=== PATIENT | female | born 1925 | race Caucasian/White ===

== ENCOUNTER 2016-07-19 13:20 | Inpatient (IN) | payer MEDICARE, OTHER ==
[2016-07-19 14:43] LABS: Urine Bacteria Absent (Absent); Urine Bilirubin Negative (Negative); Urine Glucose Negative (Negative); Urine Nitrite Negative (Negative)
--- NOTE | 2016-07-19 15:02 | RAD ---
HISTORY: Weakness COMPARISONS: January 23, 2015 VIEWS:1: Single frontal portable view of the chest at 2:35 PM FINDINGS: LINES AND TUBES: None. CARDIOMEDIASTINAL SILHOUETTE: The cardiomediastinal silhouette is normal for portable technique. PLEURA: The costophrenic angles are sharp. No pleural abnormalities are noted. LUNG PARENCHYMA: There is hyperinflation. ABDOMEN: The upper abdomen is clear. There is no subphrenic gas. BONES AND SOFT TISSUES: No bone or soft tissue abnormalities are noted. IMPRESSION: COPD. NO ACTIVE CARDIOPULMONARY DISEASE.
[2016-07-19 16:00] LABS: Hematocrit 40 % (35-47); Hemoglobin 12.8 g/dl (12.0-16.0); Mean Corpuscular HGB Conc 32 g/dl (31-36); Mean Corpuscular Hemoglobin 28 pg (27-31); Mean Corpuscular Volume 87 fL (80-97); Mean Platelet Volume 8 um3 (7.4-10.4); Red Blood Count 4.55 10^6/ul (4.0-5.4); Red Cell Distribution Width 14 % (10.5-15); White Blood Count 8.3 10^3/ul (3.5-10.8)
[2016-07-19 16:24] LABS: Albumin 3.9 g/dL (3.2-5.2); BUN/Creatinine Ratio 24.4 (8-20); C Reactive Protein 1.61 mg/L (< 5.00); Calcium 9.6 mg/dL (8.6-10.3); EGFR African American 84.6 (>60); EGFR Non-African American 65.8 (>60); Globulin 2.9 g/dL (2-4); Potassium 3.9 mmol/L (3.5-5.0); Total Bilirubin 0.4 mg/dL (0.2-1.0); Total Protein 6.8 g/dL (6.4-8.9)
[2016-07-19] MEDS: NS 0.9% 1000 ML* 1,000 ML IV SCH ×2 (16:38→22:27)
--- NOTE | 2016-07-19 18:57 | ED ---
Henna Hatfield Auryana, scribed for Cory Reyes MD on 07/19/16 at 1548 . Dizziness - HPI Summary HPI Summary: 89 year old females presents with near syncope starting today while with a friend. Nurses at [facility] states that they took her BP - reported that it was high. She states that she also feels SOB and weak but denies chest pain, abdominal pain, or any other pain. She states she's never had any LOC/full syncope. Her symptoms are improved with rest. She states that she was unable to have lunch since this episode happened just before that. She has had similar episodes of near syncope 5 years ago associated with blood pressure. She currently lives at [facility]. Dr. Keiko Parry referred her to the ED today. - History Of Current Complaint Chief Complaint: EDDizziness Stated Complaint: WEAKNESS Time Seen by Provider: 07/19/16 15:05 Hx Obtained From: Patient Onset/Duration: Resolved Timing: Constant Severity Initially: Mild Severity Currently: None Character: Dizzy Alleviating Factor(s): Rest Associated Signs And Symptoms: Positive: SOB, Other: - weakness. Negative: Chest Pain Related History: Similar Episode/Dx as - YES SEE HPI - Allergies/Home Medications Allergies/Adverse Reactions: Allergies Allergy/AdvReac Type Severity Reaction Status Date / Time Sulfa Antibiotics Allergy Unknown Verified 01/24/16 11:07 Reaction Details PMH/Surg Hx/FS Hx/Imm Hx Endocrine/Hematology History: Denies: Hx Diabetes, Hx Thyroid Disease Cardiovascular History: Denies: Hx Hypertension, Hx Pacemaker/ICD Respiratory History: Denies: Hx Asthma, Hx Chronic Obstructive Pulmonary Disease (COPD) GI History: Denies: Hx Ulcer History: Denies: Hx Renal Disease Musculoskeletal History: Reports: Hx Osteoporosis Sensory History: Reports: Hx Hearing Aid - DON'T WEAR THEM Psychiatric History: Denies: Hx Anxiety, Hx Depression, Hx Panic Disorder - Surgical History Surgery Procedure, Year, and Place: D & Cs. TONSILECTOMY. CATARACT Infectious Disease History: No Infectious Disease History: Denies: Hx Clostridium Difficile, Hx Hepatitis, Hx Human Immunodeficiency Virus (HIV), Hx of Known/Suspected MRSA, Hx Shingles, Hx Tuberculosis, Hx Known/ Suspected VRE, Hx Known/Suspected VRSA, History Other Infectious Disease, Traveled Outside the [place] in Last 30 Days - Family History Known Family History: Positive: Cardiac Disease - Social History Occupation: Retired Lives: Assisted Living - [facility] Alcohol Use: None Substance Use Type: Reports: None Hx Tobacco Use: No Smoking Status (MU): Never Smoked Tobacco Review of Systems Positive: Other - DIZZINESS. Negative: Fever Eyes: Negative ENT: Negative Cardiovascular: Negative Negative: Chest Pain Positive: Shortness Of Breath Gastrointestinal: Negative Negative: Abdominal Pain Genitourinary: Negative Positive: Other - WEAKNESS Skin: Negative Neurological: Other - NEAR SYNCOPE Negative: Syncope Psychological: Normal All Other Systems Reviewed And Are Negative: Yes Physical Exam Triage Information Reviewed: Yes Vital Signs On Initial Exam: Initial Vitals Temp Pulse Resp BP Pulse Ox 97.6 F 72 20 151/72 98 07/19/16 13:30 07/19/16 13:30 07/19/16 13:30 07/19/16 13:30 07/19/16 13:30 Vital Signs Reviewed: Yes Appearance: Positive: Well-Appearing, No Pain Distress Skin: Positive: Warm, Skin Color Reflects Adequate Perfusion, Dry Head/Face: Positive: Normal Head/Face Inspection Eyes: Positive: EOMI, LYNNE ENT: Positive: Normal ENT inspection Neck: Positive: Supple, Nontender Respiratory/Lung Sounds: Positive: Clear to Auscultation, Breath Sounds Present Cardiovascular: Positive: RRR Abdomen Description: Positive: Nontender, Soft Bowel Sounds: Positive: Present Musculoskeletal: Positive: Normal, Strength/ROM Intact Neurological: Positive: Normal, Sensory/Motor Intact, Alert, Oriented to Person Place, Time Psychiatric: Positive: Affect/Mood Appropriate Diagnostics - Vital Signs Vital Signs Temp Pulse Resp BP Pulse Ox 07/19/16 14:13 66 139/67 98 07/19/16 14:12 63 98 07/19/16 14:02 99.1 F 62 12 139/67 100 07/19/16 13:30 97.6 F 72 20 151/72 98 - Laboratory Lab Results: Lab Results 07/19/16 Range/Units 14:15 Urine Color Straw Urine Appearance Clear Urine pH 7.0 (5-9) Ur Specific Perry 1.003 L (1.010-1.030) Urine Protein Negative (Negative) Urine Ketones Negative (Negative) Urine Blood 1+ H (Negative) Urine Nitrate Negative (Negative) Urine Bilirubin Negative (Negative) Urine Urobilinogen Negative (Negative) Ur Leukocyte Esterase Trace H (Negative) Urine WBC (Auto) Trace(0-5/hpf) (Absent) Urine RBC (Auto) Trace(0-2/hpf) (Absent) Ur Squamous Epith Cells Present H (Absent) Urine Bacteria Absent (Absent) Urine Glucose Negative (Negative) Result Diagrams: 07/19/16 15:45 07/19/16 15:45 Lab Statement: Any lab studies that have been ordered have been reviewed, and results considered in the medical decision making process. - Radiology CXR Xray Interpretation: Positive (See Comments) Radiology Interpretation Completed By: Radiologist - COPD; NO ACTIVE CARDIOPULMONARY DISEASE - EKG 17:13 ST Segment: Normal Ectopy: None EKG Interpretation: NSR @63 BPM, NML ST SEGMENT, NO ECTOPY Re-Evaluation - Re-Evaluation First Eval Re-Evaluation Time: 18:40 - discussed imaging, labs, and Dizzy Course/Dx - Course Course Of Treatment: NO CRITICAL CARE TIME Assessment/Plan: DISCUSSED RESULTS WITH PATIENT/DR PARRY. ADMIT DR PARRY STABLE. - Diagnoses Provider Diagnoses: Near syncope - Provider Notifications Discussed Care Of Patient with: Dr. Parry Time Discussed With Above Provider: 18:39 - recommends admission Discharge - Discharge Plan Condition: Stable Disposition: ADMITTED TO [facility] Referrals: Keiko Parry MD [Primary Care Provider] - The documentation as recorded by the Henna dyson Auryana accurately reflects the service I personally performed and the decisions made by me, Cory Reyes MD.
--- NOTE | 2016-07-19 23:53 | HP ---
HISTORY AND PHYSICAL: DATE OF ADMISSION: 07/19/16 HISTORY OF PRESENT ILLNESS: Birgit Naranjo is an 89-year-old woman admitted with near syncope. The patient was playing the piano today with a friend. All of a sudden, she felt weak, hot in the head like she might black out. This had had this occurred close to noon. She had had breakfast. She went to the couch and lay down. When she lay down, she knew she would not black out. Her vision did not get dark. She did not have any vertigo but rather felt like her head would explode. She called for the nurse at [facility] to come and check her. He came in about 15 minutes she thinks. At that point, her blood pressure was quite high. Her systolic blood pressure was over 200 (?220). The ambulance was called. EMT checked her blood pressure, was 170/82, recheck 188/57, 10 minutes later 159 /88. She was transported to the emergency room. She is being admitted at this time. Of note, she had a similar episode on 07/15/16, which occurred after eating lunch. She had another episode similar to this a couple of weeks ago. She has been feeling generally weak, slower, not really doing her usual activities. For example, she says that yesterday she had rouge sifter come to her cottage at [facility] and she left the sink full of dishes, which she would not usually do. She also did not go to her usual yoga class. Of note, she had been in [place] at her grandson's wedding about a month ago. At that time, she injured her left leg. Then the weekend before last while her daughter was visiting, she tripped and hurt her leg again. Her left leg hurts in the front. She does not have any calf pain. PAST MEDICAL HISTORY: Otherwise significant for the following medical problems. 1. Previous history of dizziness. She said these episodes were different in the past and that they did not usually leave her feeling so weak. Once they were over, they were over. She had attributed some of these episodes to allergies. 2. Impaired fasting glucose with a hemoglobin A1c couple of months ago of 6.2%. 3. Osteoporosis. 4. 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 5. History of left TMJ. 6. History of meningioma. 7. History of mild depression. 8. History of basal cell carcinoma of the skin. 9. History of left scapular fracture in 2007. 10. History of scarlet fever. 11. Allergy to BEE STINGS. 12. Intolerance to gluten, not actual allergy. She does not have celiac disease. 13. History of dry eyes. 14. History of neck pain. PAST SURGICAL HISTORY: Includes excision of skin cancers. CURRENT MEDICATIONS: 1. Baby aspirin 1 daily. 2. Probiotic. 3. EpiPen p.r.n. 4. Restasis eye drops 1 drop both eyes twice a day only in the winter. 5. Regular aspirin 325 mg 1 to 2 tablets every 4 to 6 hours as needed for pain. ALLERGIES: SULFA and BEE STINGS. HABITS: Tobacco, none. ETOH, none. FAMILY HISTORY: Noncontributory. SOCIAL AND PERSONAL HISTORY: The patient is . She lives at [facility] in her own independent unit. She has 3 adult children, who lives out of the area. Another child had of cancer in recent years. She is retired. REVIEW OF SYSTEMS: Generally, she had been feeling very weak. Her appetite is always good. Her weight went up at her grandson's wedding when she gained 5 pounds over a week's time. She denied fevers or chills. She generally sleeps well except the time she gets up in the middle of the night when she goes to the bathroom and cannot get back to sleep and then she will put around the house. Skin: Negative. HEENT: She has visual problems, double vision for which she has prism, but has difficulty reading at times so listens to audio books. Nodes: Negative. Heme: Negative. Breasts: Negative. Endocrine: Always thirsty. Carries water with her. Respiratory: She feel short of breath with the episodes of near syncope. She also feels this way when she is exposed to outgassing gassing from things that she is allergic to. Cardiovascular: She denies chest pain. GI: She has chronic loose stool and rectal discharge at times. : She has urge incontinence. Musculoskeletal: See above. Her left leg has been hurting more since she fell backward last week. She has been walking differently. Neurologic: See above. PHYSICAL EXAMINATION GENERAL: She is an elderly white female, cheerful, lying on the stretcher, in no acute distress. VITAL SIGNS: Most recent vital signs, blood pressure 170/52, pulse 69, respirations 12, temperature afebrile, high in the ER was 99.1, now 98.1. SKIN: Warm and dry. HEENT: Atraumatic, normocephalic. Full EOMs. PERRLA. TMs unremarkable. Mouth and pharynx shows moist mucous membranes. NECK: Supple. CHEST: Clear. HEART: Normal S1, S2. There are no murmurs, gallops, or rubs. Pulses are full throughout. ABDOMEN: Soft, nontender. There are no masses or organomegaly. EXTREMITIES: Show trace edema. She has tenderness along the left anterior tibia. There is a tiny healing abrasion. There is no ecchymosis. She has no calf tenderness. She has crepitus on both knees, but with full range of motion. NEUROLOGIC: Alert, oriented. Cranial nerves intact. She moves all extremities. There are no gross focal or lateralizing signs. DTRs are 2 to 3+ and symmetric, upper and lower extremities. DIAGNOSTIC STUDIES/LAB DATA: Troponin x2 are negative. White count 8.3, H and H 12.8/40, MCV 87, PLT 256,000. INR normal at 0.87. Chemistries: Sodium 139, potassium 3.9, chloride 105, CO2 28, BUN and creatinine 20/0.82, glucose 101, lactic acid 0.7. Rest of the comprehensive metabolic panel was normal. CRP was normal at 1.61. Urinalysis, straw clear, specific gravity 1.03. Dipsticks positive for 1+ blood, esterase trace, wbc is trace, rbc is trace. Urine epithelial cells present. Chest x-ray shows no acute disease. EKG was normal. IMPRESSION: Episodes of weakness of uncertain etiology. She has a previous history of meningioma. Previous EEG many years ago was negative. Meningioma was stable on an MRI couple of years ago. These do not really sound like seizures, but could be. An arrhythmia is a possibility. With shortness of breath, it is possible that she is having pulmonary emboli, although seems unlikely as her O2 sat seems fine. She does have intercurrent weakness. At this point, I think the best thing is to admit her to telemetry to look for arrhythmias. Of note, her blood pressures have been up and down in the ER today. Systolic blood pressures were anywhere from 80 to 176. These were taken by machine, not clear if they were actually correct, however. When she had orthostatics taken, she was 176/62 sitting, 156/80 standing. I do not think orthostasis is the cause of her weakness. I do not think she has significant volume depletion. She drinks plenty of fluids and her BUN and creatinine ratio is only minimally elevated at 24.4 with normal BUN and creatinine. I will follow her in the hospital. She is DNR per [facility] form. I will not prescribe DVT prophylaxis since she will be ambulatory. CC: Cadence Hamilton * [id number]/[facility] #: [id number] MTDD
[2016-07-20 00:24] LABS: TSH (Thyroid Stimulating Horm) 1.52 mcIU/mL (0.34-5.60)
[2016-07-20] MEDS ORDERED: Aspirin Low Dose CHEW TAB* 81 MG PO SCH ×2 (09:00→21:00)
--- NOTE | 2016-07-20 15:12 | RAD ---
HISTORY: Syncope, weakness COMPARISONS: April 17, 2014 TECHNIQUE: The following sequences were obtained of the head: Sagittal T1-weighted images, axial T2-weighted images, axial FLAIR images, axial susceptibility weighted images, axial T1-weighted images. Additionally, axial diffusion-weighted images were obtained with calculated apparent diffusion coefficients. FINDINGS: HEMORRHAGE/INFARCT: There is no hemorrhage or acute infarct. MASSES/SHIFT: There is no mass or shift. EXTRA-AXIAL SPACES/MENINGES: Again noted extra axial mass along the left occipital lobe and middle cranial fossa, similar in appearance to the previous examination, accounting for differences in technique SULCI AND VENTRICLES: There is diffuse and proportional enlargement of the sulci and ventricles. CEREBRUM: There are multiple scattered small foci of elevated T2/FLAIR signal within the periventricular and subcortical white matter. There is a stable dilated perivascular space of the left basal ganglia BRAINSTEM: There is elevated T2/STIR signal within the pontine white matter. CEREBELLUM: There are no focal parenchymal abnormalities. The cerebellar tonsils are normal in size and position. SELLA: The sella is normal. PINEAL: The pineal region is clear. CP ANGLE/TEMPORAL BONES: The labyrinthine structures are grossly normal. VESSELS: Normal flow-voids are noted within the visualized vertebral vasculature. DIFFUSION ABNORMALITIES: There are no diffusion abnormalities. PARANASAL SINUSES/MASTOIDS: The paranasal sinuses are clear. ORBITS: The orbits are unremarkable. BONES AND SOFT TISSUE: No bone or soft tissue abnormalities are noted. OTHER: None IMPRESSION: 1. DIFFUSE INVOLUTIONAL CHANGE WITH STABLE CHRONIC SMALL VESSEL ISCHEMIC CHANGES. 2. NO RESTRICTED DIFFUSION TO SUGGEST ACUTE INFARCT. 3. STABLE MENINGIOMAS OF THE LEFT OCCIPITAL LOBE AND MIDDLE CRANIAL FOSSA
--- NOTE | 2016-07-21 00:13 | EEG ---
ELECTROENCEPHALOGRAPHY: DATE OF STUDY: DATE OF DICTATION: 07/20/16 PATIENT OF: Keiko Walls MD.* HISTORY: This is an 89-year-old woman being evaluated for near-syncopal episode to rule out seizures. MEDICATIONS: Include: 1. Aspirin. 2. Probiotics. 3. EpiPen. 4. Restasis. INTERPRETATION: With the patient awake, background cerebral activity consists of moderate amplitude, posterior dominant rhythm at 3 to 10 Hz. The patient's sleep background consistent with diffuse irregular delta and theta activity. No epileptiform potentials, focal abnormalities or major asymmetries of the background were noted. IMPRESSION: This awake and asleep EEG is within normal limits. [id number]/[facility] #: [id number] MTDD
[2016-07-21 12:03] VITALS: BP 131/62
--- NOTE | 2016-07-21 22:36 | DS ---
DISCHARGE SUMMARY: DATE OF ADMISSION: 07/19/16 DATE OF DISCHARGE: 07/21/16 DISCHARGE DIAGNOSES: 1. Near syncope, etology uncertain. 2. Labile hypertension. 3. History of meningioma. 4. History of basal cell carcinoma of the skin. 5. Intolerance to gluten. 6. Impaired fasting glucose. 7. Weakness. HISTORY OF PRESENT ILLNESS: Birgit Naranjo is an 89-year-old woman admitted with near syncope, weakness, and elevated blood pressure. Please see dictated admission note for details of the present illness, past medical history, family history, social and personal history, review of systems, and physical examination. DIAGNOSTIC STUDIES/LAB DATA: CBC: WBC 8.3, H and H 12.8/40, MCV 87, PLT 256K. INR 0.87, D-dimer less than 200. Chemistries: Sodium 139, potassium 3.9, chloride 104, CO2 28, BUN/creatinine 20/0.82, glucose 101, lactic acid 0.7. Rest of the comprehensive metabolic panel was normal. Troponins were negative. CRP was normal at 1.61. B12 of 349. TSH 1.52. BNP 90. Magnesium 2. Urinalysis: Straw, clear, specific gravity 1.003, pH 7. Dipsticks positive for blood 1+, esterase trace, wbc's trace, rbc's trace, urine squamous epithelial cells present. Urine C and S negative. Chest x-ray showed no acute disease. EEG was unremarkable. Brain MRI showed stable meningiomas with diffuse involutional change, stable chronic small vessel ischemic changes, no acute infarct. The meningiomas were in the left occipital lobe and middle cranial fossa. HOSPITAL COURSE: The patient was admitted. She was monitored on telemetry. She was DNR. No DVT prophylaxis was given because of her ambulatory status. The following day, she felt great. She had no further episodes of weakness or near syncope. She wondered about an emotional component to her symptoms. She said that she was not really worried about anything except for the political situation, however. She says she does get easily stressed about things. At the time that this happened, however, she was playing piano with a friend, was not stressed at all, but rather having a good time. The etiology of her symptoms was uncertain. Odd were the fluctuating blood pressures in the emergency room. She is being checked for a pheochromocytoma with blood for fractionated metanephrines, which is pending at the time of discharge. An event monitor or reveal could be considered if this is negative and she has continued symptoms. DISCHARGE ACTIVITIES: At the time of discharge, she is to have activity as tolerated. DISCHARGE DIET: Diet is usual. DISCHARGE MEDICATIONS: She is to be on: 1. Aspirin 81 mg per day. 2. Aspirin 325 mg 1 to 2 every 4 to 6 hours as needed for pain. 3. Probiotic once a day. DISCHARGE INSTRUCTIONS: She is to monitor her blood pressure 3 times a day and write it down. She is to follow up with me on Monday, July 29, at 1 p.m. in my office. CC: [facility] * [id number]/[facility] #: [id number] OUSMANE
[2016-07-25 09:21] LABS: Plasma Free Metanephrine <0.20 nmol/L (<0.50); Plasma Free Normetanephrine 0.49 nmol/L (<0.90)
== END 2016-07-21 14:36 | DRG 312 ==
LOC: ED 13:20 → MEDTELE 20:15 → OBSVTOIN 07-20 10:17
PROVIDERS: ADMIT Internal Medicine Geriatric Medicine; ATTEND Internal Medicine Geriatric Medicine
PROC: 4A00X4Z Measurement of Central Nervous Electrical Activity, External Approach (ICD-10-PCS; principal; 2016-07-19)
DX: R55 Syncope and collapse (principal); K90.41 Non-celiac gluten sensitivity; I10 Essential (primary) hypertension; F32.9 Major depressive disorder, single episode, unspecified; M81.0 Age-related osteoporosis without current pathological fracture; K58.9 Irritable bowel syndrome, unspecified; R73.01 Impaired fasting glucose; R53.1 Weakness; H91.90 Unspecified hearing loss, unspecified ear; Z66 Do not resuscitate; D32.0 Benign neoplasm of cerebral meninges; Z79.82 Long term (current) use of aspirin; Z88.2 Allergy status to sulfonamides; Z97.4 Presence of external hearing-aid; Z98.49 Cataract extraction status, unspecified eye; Z82.49 Family history of ischemic heart disease and other diseases of the circulatory system; Z85.820 Personal history of malignant melanoma of skin; Z91.030 Bee allergy status; Z80.9 Family history of malignant neoplasm, unspecified
CPT/HCPCS: 36415; 70551; 71010; 80053; 81003; 81015; 82550; 82607; 83605; 83735; 83835; 83880; 84443; 84484; 85025; 85379; 85610; 86140; 87086; 93005; 95816; A9270-GY